=== PATIENT | male | born 1980 | race Caucasian/White ===

== ENCOUNTER → 2017-08-20 | Outpatient (REF) ==
[~2017-08-20] MED LIST: AZIT-21 PO; GUAI120L29 PO
--- NOTE | 2017-08-20 09:18 | Diagnostic Imaging Report ---
INDICATION: Physical exam. TIME OF EXAMINATION: 9:26 AM. COMPARISON: 06/05/2014. FINDINGS: The heart size is stable. The pulmonary vascularity is normal. No infiltrates are detected. No effusion or pneumothorax is seen. IMPRESSION: No acute cardiopulmonary process is detected. Dictated by: Dictated on workstation # [id number]
== END | disposition home or self-care (01) ==
LOC: OCC 08:58
PROVIDERS: ATTEND Nurse Practitioner Family
CPT/HCPCS: 71045